=== PATIENT | female | born 1975 | race Caucasian/White ===

== ENCOUNTER → 2017-11-09 | Outpatient (CLI) | payer OTHER ==
[~2017-11-09] MED LIST: AMOX-559 PO; CEPH500C24 PO; DEX1 FT; DIAZ2TAB72 PO; FLUO20DR3 LEFT EAR; FLUT16SP19 NS; GABA-549 PO; HYDR2TAB74 PO; HYDR453.8 TP; KET10 PO; LEVO100T95 PO; LEVO88TA43 PO; LIO5 PO; LOR5/325 PO; LUBI24CA14 PO; OMEP40CA48 PO; ONDA4TAB PO; RANI-324 PO; SULF-198 PO; TRA50 PO; VEN75 PO; VENL150C3 PO; VENL150T10 PO; neurontin PO
== END ==
LOC: AUD 13:00
PROVIDERS: ATTEND Otolaryngology
DX: H69.83 Other specified disorders of Eustachian tube, bilateral (principal); H93.13 Tinnitus, bilateral
CPT/HCPCS: 92557; 92570

== ENCOUNTER → 2017-11-17 | Outpatient (CLI) | payer OTHER ==
[~2017-11-17] MED LIST changes: +GADOBENATE 529MG/1ML 15ML VIAL IVP ONE
--- NOTE | 2017-11-17 12:12 | RADIOLOGY IMAGING REPORT ---
FACILITY: [facility] PATIENT NAME: Carrie Leon : 1975 MR: [id number] V: [id number] EXAM DATE: [id number] ORDERING PHYSICIAN: [facility] TECHNOLOGIST: Location: [facility] [place] Patient: Carrie Leon : 1975 Visit/Account:[id number] Date of Sevice: 11/17/2017 EXAMINATION: Cervical spine MRI without and with IV contrast Thoracic spine MRI without and with IV contrast Lumbar spine MRI without and with IV contrast HISTORY: Neck pain. Back pain. COMPARISON: Thoracic spine MRI without contrast dated 07/20/2017. TECHNIQUE: Multi-planar, multi-sequence cervical, thoracic, and lumbar spine MRI was performed befor e and after IV contrast. CONTRAST: 15 mL of IV MultiHance FINDINGS: CERVICAL SPINE: Alignment: Normal. Vertebral marrow signal: Negative. Cranio-cervical junction: Negative. Visualized posterior fossa: Negative. Soft tissues: Negative. Cervical cord: Negative. Enhancement pattern: Negative. Disc Spaces: C1-2: Negative. C2-3: Negative. C3-4: Circumferential disc osteophyte complex. No significant spinal canal stenosis. Mild bilateral neural foraminal stenosis. C4-5: Circumferential disc osteophyte complex. No significant spinal canal stenosis. Mild bilateral neural foraminal stenosis. C5-6: Minimal disc bulge. No significant stenosis. C6-7: Mild disc bulge. No significant stenosis. C7-T1: Negative. THORACIC SPINE: Alignment: Negative. Vertebral marrow signal: Negative. Paravertebral soft tissues: Postsurgical changes from at T5-T6, T6-T7, and T7-T8. Otherwise negative . Thoracic cord: Stable 7.2 x 0.5 x 0.4 cm syrinx or resection cavity in the central spinal cord extend ing from T6 through T9. Enhancement: Expected soft tissue enhancement in the postsurgical region. Otherwise negative. Disc Spaces: No disc herniation, spinal canal stenosis, or neural foraminal stenosis. LUMBAR SPINE: Alignment: Moderate convex rightward curvature. Vertebral marrow signal: Negative. Distal thoracic cord: Negative. Conus: negative, terminates at L1 Cauda equina: Negative. Paravertebral soft tissues: Negative. Visualized abdominal and pelvic structures: Negative. Enhancement pattern: Negative. Disc Spaces: Asymmetric congenital T12-L1 fusion on the right. L1-2: Negative. L2-3: Negative. L3-4: Negative. L4-5: Circumferential disc bulge, facet hypertrophy, and ligamentum flavum thickening. No significan t spinal canal stenosis. Moderate bilateral neural foraminal stenosis. L5-S1: Negative. IMPRESSION: 1. Mild multilevel degenerative disc disease in the cervical spine with mild neural foraminal stenos is at C3-C4 and C4-C5. No spinal canal stenosis in the cervical spine. No abnormal spinal cord sign al in the cervical spine. 2. Postsurgical changes in the midthoracic spine with stable 7.2 x 0.5 x 0.4 cm syrinx or resection cavity in the central spinal cord extending from T6 through T9. 3. 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 4. Degenerative disc disease and facet hypertrophy at L4-L5 with moderate bilateral neural foraminal stenosis. Report Dictated By: Leopoldo Velasquez MD at 11/17/2017 11:56 AM Report E-Signed By: Leopoldo Velasquez MD at 11/17/2017 12:09 PM WSN:[id number]
--- NOTE | 2017-11-17 12:13 | RADIOLOGY IMAGING REPORT ---
FACILITY: [facility] PATIENT NAME: Carrie Leon : 1975 MR: [id number] V: [id number] EXAM DATE: ORDERING PHYSICIAN: [facility] TECHNOLOGIST: Location: [facility] - [place] Patient: Carrie Leon : 1975 Visit/Account:[id number] Date of Sevice: 11/17/2017 EXAMINATION: Cervical spine MRI without and with IV contrast Thoracic spine MRI without and with IV contrast Lumbar spine MRI without and with IV contrast HISTORY: Neck pain. Back pain. COMPARISON: Thoracic spine MRI without contrast dated 07/20/2017. TECHNIQUE: Multi-planar, multi-sequence cervical, thoracic, and lumbar spine MRI was performed befor e and after IV contrast. CONTRAST: 15 mL of IV MultiHance FINDINGS: CERVICAL SPINE: Alignment: Normal. Vertebral marrow signal: Negative. Cranio-cervical junction: Negative. Visualized posterior fossa: Negative. Soft tissues: Negative. Cervical cord: Negative. Enhancement pattern: Negative. Disc Spaces: C1-2: Negative. C2-3: Negative. C3-4: Circumferential disc osteophyte complex. No significant spinal canal stenosis. Mild bilateral neural foraminal stenosis. C4-5: Circumferential disc osteophyte complex. No significant spinal canal stenosis. Mild bilateral neural foraminal stenosis. C5-6: Minimal disc bulge. No significant stenosis. C6-7: Mild disc bulge. No significant stenosis. C7-T1: Negative. THORACIC SPINE: Alignment: Negative. Vertebral marrow signal: Negative. Paravertebral soft tissues: Postsurgical changes from at T5-T6, T6-T7, and T7-T8. Otherwise negative . Thoracic cord: Stable 7.2 x 0.5 x 0.4 cm syrinx or resection cavity in the central spinal cord extend ing from T6 through T9. Enhancement: Expected soft tissue enhancement in the postsurgical region. Otherwise negative. Disc Spaces: No disc herniation, spinal canal stenosis, or neural foraminal stenosis. LUMBAR SPINE: Alignment: Moderate convex rightward curvature. Vertebral marrow signal: Negative. Distal thoracic cord: Negative. Conus: negative, terminates at L1 Cauda equina: Negative. Paravertebral soft tissues: Negative. Visualized abdominal and pelvic structures: Negative. Enhancement pattern: Negative. Disc Spaces: Asymmetric congenital T12-L1 fusion on the right. L1-2: Negative. L2-3: Negative. L3-4: Negative. L4-5: Circumferential disc bulge, facet hypertrophy, and ligamentum flavum thickening. No significan t spinal canal stenosis. Moderate bilateral neural foraminal stenosis. L5-S1: Negative. IMPRESSION: 1. Mild multilevel degenerative disc disease in the cervical spine with mild neural foraminal stenos is at C3-C4 and C4-C5. No spinal canal stenosis in the cervical spine. No abnormal spinal cord sign al in the cervical spine. 2. Postsurgical changes in the midthoracic spine with stable 7.2 x 0.5 x 0.4 cm syrinx or resection cavity in the central spinal cord extending from T6 through T9. 3. 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 4. Degenerative disc disease and facet hypertrophy at L4-L5 with moderate bilateral neural foraminal stenosis. Report Dictated By: Leopoldo Velasquez MD at 11/17/2017 11:56 AM Report E-Signed By: Leopoldo Velasquez MD at 11/17/2017 12:09 PM WSN:[id number]
--- NOTE | 2017-11-17 12:13 | RADIOLOGY IMAGING REPORT ---
FACILITY: [facility] - [place] PATIENT NAME: Carrie Leon : 1975 MR: [id number] V: [id number] EXAM DATE: ORDERING PHYSICIAN: [facility] TECHNOLOGIST: Location: [facility] Patient: Carrie Leon : 1975 Visit/Account:[id number] Date of Sevice: 11/17/2017 EXAMINATION: Cervical spine MRI without and with IV contrast Thoracic spine MRI without and with IV contrast Lumbar spine MRI without and with IV contrast HISTORY: Neck pain. Back pain. COMPARISON: Thoracic spine MRI without contrast dated 07/20/2017. TECHNIQUE: Multi-planar, multi-sequence cervical, thoracic, and lumbar spine MRI was performed befor e and after IV contrast. CONTRAST: 15 mL of IV MultiHance FINDINGS: CERVICAL SPINE: Alignment: Normal. Vertebral marrow signal: Negative. Cranio-cervical junction: Negative. Visualized posterior fossa: Negative. Soft tissues: Negative. Cervical cord: Negative. Enhancement pattern: Negative. Disc Spaces: C1-2: Negative. C2-3: Negative. C3-4: Circumferential disc osteophyte complex. No significant spinal canal stenosis. Mild bilateral neural foraminal stenosis. C4-5: Circumferential disc osteophyte complex. No significant spinal canal stenosis. Mild bilateral neural foraminal stenosis. C5-6: Minimal disc bulge. No significant stenosis. C6-7: Mild disc bulge. No significant stenosis. C7-T1: Negative. THORACIC SPINE: Alignment: Negative. Vertebral marrow signal: Negative. Paravertebral soft tissues: Postsurgical changes from at T5-T6, T6-T7, and T7-T8. Otherwise negative . Thoracic cord: Stable 7.2 x 0.5 x 0.4 cm syrinx or resection cavity in the central spinal cord extend ing from T6 through T9. Enhancement: Expected soft tissue enhancement in the postsurgical region. Otherwise negative. Disc Spaces: No disc herniation, spinal canal stenosis, or neural foraminal stenosis. LUMBAR SPINE: Alignment: Moderate convex rightward curvature. Vertebral marrow signal: Negative. Distal thoracic cord: Negative. Conus: negative, terminates at L1 Cauda equina: Negative. Paravertebral soft tissues: Negative. Visualized abdominal and pelvic structures: Negative. Enhancement pattern: Negative. Disc Spaces: Asymmetric congenital T12-L1 fusion on the right. L1-2: Negative. L2-3: Negative. L3-4: Negative. L4-5: Circumferential disc bulge, facet hypertrophy, and ligamentum flavum thickening. No significan t spinal canal stenosis. Moderate bilateral neural foraminal stenosis. L5-S1: Negative. IMPRESSION: 1. Mild multilevel degenerative disc disease in the cervical spine with mild neural foraminal stenos is at C3-C4 and C4-C5. No spinal canal stenosis in the cervical spine. No abnormal spinal cord sign al in the cervical spine. 2. Postsurgical changes in the midthoracic spine with stable 7.2 x 0.5 x 0.4 cm syrinx or resection cavity in the central spinal cord extending from T6 through T9. 3. 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 4. Degenerative disc disease and facet hypertrophy at L4-L5 with moderate bilateral neural foraminal stenosis. Report Dictated By: Leopoldo Velasquez MD at 11/17/2017 11:56 AM Report E-Signed By: Leopoldo Velasquez MD at 11/17/2017 12:09 PM WSN:[id number]
== END ==
LOC: MRI 03:04
PROVIDERS: ATTEND Neurological Surgery
DX: M54.2 Cervicalgia (principal); M54.10 Radiculopathy, site unspecified; M54.9 Dorsalgia, unspecified; M47.892 Other spondylosis, cervical region; M47.896 Other spondylosis, lumbar region; M41.84 Other forms of scoliosis, thoracic region
CPT/HCPCS: 72156; 72157; 72158; A9577

== ENCOUNTER → 2017-12-05 | Outpatient (CLI) | payer OTHER ==
[~2017-12-05] MED LIST changes: -GADOBENATE 529MG/1ML 15ML VIAL IVP ONE; -RANI-324 PO; +RANI-366 PO
--- NOTE | 2017-12-05 11:07 | RADIOLOGY IMAGING REPORT ---
FACILITY: [facility] - [place] PATIENT NAME: Carrie Leon : 1975 MR: [id number] V: [id number] EXAM DATE: ORDERING PHYSICIAN: KAELYN RAZA TECHNOLOGIST: Location: [facility] - [place] Patient: Carrie Leon : 1975 Visit/Account:[id number] Date of Sevice: 12/05/2017 Technique: CHEST PA AND LAT HISTORY: Cough COMPARISON: Chest radiographs October 29, 2016 Findings: The lungs are clear. No pleural effusion or pneumothorax. The cardiomediastinal silhouett e is unchanged. Impression: 1. No acute cardiopulmonary process. Report Dictated By: Elvis Jones DO at 12/05/2017 11:02 AM Report E-Signed By: Elvis Jones DO at 12/05/2017 11:03 AM WSN:[id number]
== END ==
LOC: RAD 10:29
PROVIDERS: ATTEND Otolaryngology
DX: R05 Cough (principal)
CPT/HCPCS: 71046

== ENCOUNTER → 2018-07-04 | Outpatient (CLI) | payer OTHER ==
[~2018-07-04] MED LIST changes: +CEF300 PO
--- NOTE | 2018-07-04 11:26 | RADIOLOGY IMAGING REPORT ---
FACILITY: [facility] [place] PATIENT NAME: Carrie Leon : 1975 MR: [id number] V: [id number] EXAM DATE: ORDERING PHYSICIAN: [employer] [facility] TECHNOLOGIST: Location: [facility] - [place] Patient: Carrie Leon : 1975 Visit/Account:[id number] Date of Sevice: 07/04/2018 Study: MRI lumbar spine without gadolinium contrast. Indication: Numbness from waist down left side, chronic low back pain Comparison study:None Technique:Multiplanar MRI sequences were obtained through the lumbar spine without the use of gadolin ium contrast. Findings:The examination demonstrates the presence of normal alignment of the lumbar vertebrae. There is no abnormal signal identified within the lumbar or sacral vertebrae. There is hypoplasia of the T12-L1 disc space. This is congenital in nature. The conus medullaris is located posterior to the T12/L1 disc space level. There is no evidence of abnormality of the lumbar nerve roots. Disc spaces: L1/2:At this level, there is no significant disc pathology. There is no significant neural foraminal stenosis or spinal stenosis. L2/3:At this level, there is no significant disc pathology. There is no significant neural foraminal stenosis or spinal stenosis. L3/4:At this level, there is no significant disc pathology. There is no significant neural foraminal stenosis or spinal stenosis. L4/5: At this level, there is a diffuse disc bulge, asymmetric to the right. There is effacement of the right lateral recess. There is facet and ligamentous hypertrophy. There is moderate right and m ild left neural foraminal stenosis. There is no significant spinal stenosis. L5/S1: At this level, there is no significant disc pathology. There is facet and ligamentous hypertr ophy. There is no significant neural foraminal stenosis or spinal stenosis. IMPRESSION: Lower lumbar disc pathology and spondylopathy present as described. There is no evidence of abnormality of the distal spinal cord or lumbar nerve roots. Please see the body of the report for description of individual disc levels. Report Dictated By: Gregory Greenberg at 07/04/2018 11:12 AM Report E-Signed By: Gregory Greenberg at 07/04/2018 11:22 AM WSN:[id number]
== END ==
LOC: MRI 00:19
PROVIDERS: ATTEND Family Medicine
DX: M51.06 Intervertebral disc disorders with myelopathy, lumbar region (principal)
CPT/HCPCS: 72148

== ENCOUNTER → 2019-02-04 | Outpatient (CLI) | payer OTHER ==
[~2019-02-04] MED LIST changes: +AZIT-17 PO; +CEFPR500PT PO; +CIPDEXPT LEFT EAR; +FLUINH INH; +INHA1SPA INH; -LIO5 PO; +LIOT5TAB PO; +METH4TAB66 PO; +MUPI22OI28 TP; -RANI-366 PO; +RANI-54 PO
== END ==
LOC: AUD 12:30
PROVIDERS: ATTEND Physician Assistant
DX: H69.83 Other specified disorders of Eustachian tube, bilateral (principal)
CPT/HCPCS: 92553; 92567

== ENCOUNTER → 2019-03-01 | Outpatient (CLI) | payer OTHER ==
--- NOTE | 2019-03-01 16:53 | RADIOLOGY IMAGING REPORT ---
FACILITY: [facility] - [place] PATIENT NAME: Carrie Leon : 1975 MR: [id number] V: [id number] EXAM DATE: ORDERING PHYSICIAN: MADDIE MCCURDY TECHNOLOGIST: [place] [facility] [place] Patient: Carrie Leon : 1975 Visit/Account:[id number] Date of Sevice: 03/01/2019 L-SPINE COMPLETE W/BENDING Indication: Postoperative Comparison: None. Findings: There are postoperative changes with posterior instrumentation and fusion hardware at L4-5. There is an interdisc spacer. The vertebral bodies demonstrate normal alignment. The remaining disc spaces are maintained. Facets are normal. IMPRESSION: Postoperative changes with posterior instrumentation and fusion hardware L4-5. Report Dictated By: Aramis Hughes at 03/01/2019 4:44 PM Report E-Signed By: Aramis Hughes at 03/01/2019 4:45 PM WSN:[id number]
== END ==
LOC: RAD 14:29
PROVIDERS: ATTEND Neurological Surgery
DX: Z98.1 Arthrodesis status (principal)
CPT/HCPCS: 72114

== ENCOUNTER → 2019-03-05 | Outpatient (CLI) | payer OTHER ==
[~2019-03-05] MED LIST changes: +GADOBENATE 529MG/1ML 10ML VIAL IVP ONE
--- NOTE | 2019-03-05 11:46 | RADIOLOGY IMAGING REPORT ---
FACILITY[place] [facility] [place]IENT NAME: Carrie Leon : 1975 MR: [id number] V: [id number] EXAM DATE: ORDERING PHYSICIAN: BALBIR ESCOBAR TECHNOLOGIST: [place] [facility] [place] : 1975 Visit/Account:[id number] Date of Sevice: 03/05/2019 Examination: MR brain without and with contrast History: Sensation loss, facial numbness Comparison: None Technique: Multiplane MR imaging was performed through the brain without and with contrast. 15 cc IV multihance was administered. Findings: Diffusion: None Ventricles: Normal Midline shift: None Extraxial fluid: None Midline craniocervical structures: Normal Parenchyma: 3 mm faint patch of high signal within the left kathleen, axial flair and T2 images 16. Enhan cement: No pathologic enhancement Vascular flow voids: Normal Orbits and paranasal sinuses: Normal Other: No significant additional finding. Impression: 1. No acute finding. 2. 3 mm nonspecific left kathleen high signal may represent a normal perivascular space or residua of jessica or microvascular ischemia or nonspecific inflammation. 3. Otherwise normal brain MR without and with contrast. Report Dictated By: Rachid Spencer MD at 03/05/2019 11:29 AM Report E-Signed By: Rachid Spencer MD at 03/05/2019 11:37 AM WSN:[email or web address]
--- NOTE | 2019-03-05 12:29 | RADIOLOGY IMAGING REPORT ---
FACILITY: [facility] PATIENT NAME: Carrie Leon : 1975 MR: [id number] V: [id number] EXAM DATE: ORDERING PHYSICIAN: BALBIR ESCOBAR TECHNOLOGIST: Location: [facility] [place] Patient: Carrie Leon : 1975 Visit/Account:[id number] Date of Sevice: 03/05/2019 EXAMINATION: MR SPINE CERVICAL W/ & W/O CON INDICATION: Sensation loss, facial numbness. COMPARISON: November 17, 2017 TECHNIQUE: Multiplane MR imaging was performed through the cervical spine without and with contrast. 15 ml multihance injected. FINDINGS: Vertebral bodies and posterior elements: Normal Cord signal: Normal Marrow signal: Normal Prevertebral and paraspinal soft tissues: Normal Enhancement: No pathologic enhancement. C2-3: Minimal unchanged disc bulge. No canal narrowing. Normal foramen. C3-4: Unchanged uncovertebral arthropathy and small disc protrusion. Congenitally narrowed canal. Mil d to moderate unchanged canal narrowing. Potential mild to moderate unchanged right foraminal narrowi ng not well characterized secondary to motion artifact. No definitive left foraminal narrowing. C4-5: Unchanged uncovertebral arthropathy and small disc protrusion. Congenitally narrowed canal. Mil d to moderate unchanged canal narrowing. Mild to moderate unchanged bilateral foraminal narrowing. C5-6: Minimal unchanged disc bulge. No canal narrowing. Normal foramen. C6-7: Minimal disc protrusion is stable to slightly decreased in size. No canal narrowing. Mild uncha nged left foraminal narrowing, otherwise normal. C7-T1: Mild unchanged left foraminal narrowing, otherwise normal. IMPRESSION: 1. No cord signal abnormality or cord pathologic enhancement. 2. Mild to moderate unchanged C3-4 and C4-5 canal narrowing secondary to the constellation of finding s described above. 3. Multilevel foraminal narrowing similar to prior, see level by level comments above. Report Dictated By: Rachid Spencer MD at 03/05/2019 12:14 PM Report E-Signed By: Rachid Spencer MD at 03/05/2019 12:21 PM WSN:[email or web address]
--- NOTE | 2019-03-05 12:42 | RADIOLOGY IMAGING REPORT ---
FACILITY: [facility] PATIENT NAME: Carrie Leon : 1975 MR: [id number] V: [id number] EXAM DATE: ORDERING PHYSICIAN: BALBIR ESCOBAR TECHNOLOGIST: Location: [facility] Patient: Carrie Leon : 1975 Visit/Account:[id number] Date of Sevice: 03/05/2019 EXAMINATION: MR SPINE THORACIC W & W/O CON INDICATION: Sensation loss COMPARISON: November 17, 2017 TECHNIQUE: Multiplane MR imaging was performed through the thoracic spine without and with iv contras t. 15 multihance injected uneventfully. FINDINGS: Vertebral bodies and posterior elements: Normal vertebral body heights. Unchanged posterior paraspina l postsurgical change in the mid thoracic spine. Cord signal: Unchanged cord syrinx extending from T4 through T10 largest at the T7 level measuring 4. 4 mm transverse, axial T2 image 9. Marrow signal: Mild high signal and enhancement within the T6 spinous process has decreased. Alignment: Normal. Disc spaces: Minimal disc protrusions at a few levels as before result in no canal narrowing. Canal narrowing: Minimal T7 level canal narrowing secondary to ligamentum flavum thickening as before . Enhancement: No pathologic enhancement in the cord or canal. Mild likely degenerative marrow enhancem ent within the left T6 articular pillar is unchanged. Prevertebral and paraspinal soft tissues: Normal IMPRESSION: 1. Unchanged cord syrinx largest at T7 measuring 4.4 mm maximal transverse dimension. 2. T7 marrow high signal/enhancement has decreased and is favored to be benign/postsurgical. 3. No canal narrowing or significant disc protrusion. No acute finding. Report Dictated By: Rachid Spencer MD at 03/05/2019 12:22 PM Report E-Signed By: Rachid Spencer MD at 03/05/2019 12:34 PM WSN:[email or web address]
== END ==
LOC: MRI 00:15
PROVIDERS: ATTEND Psychiatry & Neurology Neurology
DX: R20.0 Anesthesia of skin (principal); R20.2 Paresthesia of skin; M21.372 Foot drop, left foot; G95.0 Syringomyelia and syringobulbia; R32 Unspecified urinary incontinence; R15.2 Fecal urgency
CPT/HCPCS: 70553; 72156; 72157; A9577

== ENCOUNTER → 2019-03-06 | Outpatient (CLI) | payer OTHER ==
[~2019-03-06] MED LIST changes: -GADOBENATE 529MG/1ML 10ML VIAL IVP ONE
--- NOTE | 2019-03-06 12:09 | RADIOLOGY IMAGING REPORT ---
FACILITY: [facility] PATIENT NAME: Carrie Leon : 1975 MR: [id number] V: [id number] EXAM DATE: ORDERING PHYSICIAN: REYNALDO IZAGUIRRE TECHNOLOGIST: Location: [facility] Patient: Carrie Leon : 1975 Visit/Account:[id number] Date of Sevice: 03/06/2019 Study: CT scan of the paranasal sinuses Indication: Chronic sinusitis Comparison study:None Technique: Multiple axial images were obtained through the paranasal sinuses. Coronal and sagittal 2- dimensional reconstructions were made from the original data set. One of the following dose optimization techniques was utilized in the performance of this exam: Autom ated exposure control; adjustment of the mA and/or kV according to the patient's size; or use of an i terative reconstruction technique. Specific details can be referenced in the facility's radiology C T exam operational policy. Findings: Maxillary sinuses:Unremarkable Ethmoid air cells:Unremarkable Sphenoid sinus:Unremarkable Frontal sinus:Unremarkable Ostiomeatal units:Patent bilaterally Nasal septum:Midline IMPRESSION:CT scan of the paranasal sinuses demonstrating no evidence of radiographically significant abnormality. Report Dictated By: Gregory Greenberg at 03/06/2019 11:59 AM Report E-Signed By: Gregory Greenberg at 03/06/2019 12:01 PM WSN:[id number]
== END ==
LOC: CT 01:20
PROVIDERS: ATTEND Physician Assistant
DX: J32.9 Chronic sinusitis, unspecified (principal)
CPT/HCPCS: 70486